=== PATIENT | male | born 2005 | race Caucasian/White ===

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

== ENCOUNTER 2025-01-06 02:21 | Emergency (ER) | payer OTHER ==
[2025-01-06 02:34] VITALS: BP 136/71; PULSE 91; RESP 17; TEMP 98.2
--- NOTE | 2025-01-06 02:48 | ED ---
General Adult HPI - General Chief complaint: Neck Pain/Injury Stated complaint: Neck injury Time Seen by Provider: 01/06/25 02:38 Source: patient, RN notes reviewed, old records reviewed Mode of arrival: ambulatory Limitations: no limitations - History of Present Illness Initial comments: 19-year-old male presenting for evaluation of left-sided neck pain. Patient had injured his neck while swimming [place] an aboveground swimming pool approximately 1 week ago. Patient has not taken any [id number] medication. No numbness or tingling to the upper extremities. No gait abnormalities. - Related Data Home Medications Medication Instructions Recorded Confirmed Pantoprazole Sodium [Protonix] 20 mg PO DAILY 04/05/24 04/05/24 Previous Rx's Medication Instructions Recorded Divalproex [Depakote] 500 mg PO HS 30 Days #30 tab 07/03/23 Melatonin 10 mg PO HS tab 04/11/24 Nicotine 14Mg/24Hr Patch [Habitrol] 1 patch TRANSDERM DAILY 30 Days 04/11/24 #30 patch Pantoprazole [Protonix] 40 mg PO AC-BRKFST 30 Days #30 tab 04/11/24 haloperidoL [Haldol] 15 mg PO HS 30 Days #90 tab 04/11/24 Ketorolac [Toradol] 10 mg PO Q8HR #15 tab 05/02/24 Ofloxacin 0.3% Otic Soln [Floxin 5 drops LEFT EAR BID 7 Days #5 ml 05/10/24 0.3% Otic Soln] Ibuprofen [Motrin] 600 mg PO Q8HR PRN #24 tab 01/06/25 Allergies Allergy/AdvReac Type Severity Reaction Status Date / Time bee venom protein (honey bee) Allergy Swelling Verified 01/06/25 02:32 @sting site risperidone [From Risperdal] Allergy Unknown Verified 01/06/25 02:32 clonidine AdvReac decreased Verified 01/06/25 02:32 BP clozapine [From Clozaril] AdvReac kidney Verified 01/06/25 02:32 issues lisdexamfetamine AdvReac jittery Verified 01/06/25 02:32 [From Vyvanse] Review of Systems ROS Statement: Those systems with pertinent positive or pertinent negative responses have been documented in the HPI. ROS Other: All systems not noted in ROS Statement are negative. Past Medical History Past Medical History: No Reported History Additional Past Medical History / Comment(s): rt index finger and middle finger injury, left ankle. seasonal allergies History of Any Multi-Drug Resistant Organisms: None Reported Past Surgical History: Adenoidectomy, Ear Surgery, Tonsillectomy Additional Past Surgical History / Comment(s): WILLARD. TYMPLANOPLASTY Past Anesthesia/Blood Transfusion Reactions: No Reported Reaction, Previous P roblems w/ Anesthesia Additional Past Anesthesia/Blood Transfusion Reaction / Comment(s): panics and passes out with blood draws and IVs. mom takes long time to wake up after anesthesia Past Psychological History: ADD/ADHD, Anxiety, Bipolar, Depression, Schizoaffective Disorder Smoking Status: Current every day smoker, Vaper Past Alcohol Use History: None Reported Past Drug Use History: None Reported - Past Family History Mother Family Medical History: No Reported History Additional Family Medical History / Comment(s): depression General Exam Limitations: no limitations General appearance: alert, in no apparent distress Head exam: Present: atraumatic, normocephalic Eye exam: Present: normal appearance, PERRL ENT exam: Present: normal exam Neck exam: Present: normal inspection, tenderness, full ROM (Left trapezius mus amy, no midline tenderness) Respiratory exam: Present: normal lung sounds bilaterally. Absent: respiratory distress, wheezes Cardiovascular Exam: Present: regular rate, normal rhythm GI/Abdominal exam: Present: soft. Absent: distended, tenderness Extremities exam: Present: normal inspection, full ROM. Absent: tenderness Neurological exam: Present: alert, oriented X3, CN II-XII intact. Absent: motor sensory deficit Psychiatric exam: Present: normal affect, normal mood Skin exam: Present: warm, dry, intact Course Vital Signs 01/06/25 02:32 Temperature 98.2 F Pulse Rate 91 Respiratory 17 Rate Blood Pressure 136/71 O2 Sat by Pulse 98 Oximetry Medical Decision Making - Medical Decision Making Was pt. sent in by a medical professional or institution (, PA, PROPERTY CUSTODIAN, urgent care, hospital, or long-term...) When possible be specific @ -No Did you speak to anyone other than the patient for history (EMS, parent, family, police, friend...)? What history was obtained from this source @ -No Did you review nursing and triage notes (agree or disagree)? Why? @ -I reviewed and agree with nursing and triage notes Were old charts reviewed (outside hosp., previous admission, EMS record, old EKG, old radiological studies, urgent care reports/EKG's, long-term records)? Report findings @ -No old charts were reviewed Differential Musculoskeletal Muscular strain, contusion, ligament sprain, fracture, arthritis, septic arthritis, bursitis, cellulitis, muscle spasm, nerve compression, DVT, arterial occlusion, herpes zoster, electrolyte abnormality, tumor.... This is not meant to be in all inclusive list EKG interpreted by me (3pts min.). @ -As above X-rays interpreted by me (1pt min.). @ -None done CT interpreted by me (1pt min.). @ -None done U/S interpreted by me (1pt. min.). @ -None done What testing was considered but not performed or refused? (CT, X-rays, U/S, labs)? Why? @ -None What meds were considered but not given or refused? Why? @ -None Did you discuss the management of the patient with other professionals (professionals i.e. , PA, PROPERTY CUSTODIAN, lab, RT, psych nurse, social sciences instructor, legal document assistant, teacher, parking regulation enforcement officer, field nurse case manager)? Give summary @ -No Was smoking cessation discussed for >3mins.? @ -No Was critical care preformed (if so, how long)? @ -No Were there social determinants of health that impacted care today? How? (Homelessness, low income, unemployed, alcoholism, drug addiction, transportation, low edu. Level, literacy, decrease access to med. care, fdc, rehab)? @ -No Was there de-escalation of care discussed even if they declined (Discuss DNR or withdrawal of care, Hospice)? DNR status @ -No What co-morbidities impacted this encounter? (DM, HTN, Smoking, COPD, CAD, Cancer, CVA, ARF, Chemo, Hep., AIDS, mental health diagnosis, sleep apnea, morbid obesity)? @ -None Was patient admitted / discharged? Hospital course, mention meds given and ro binta, prescriptions, significant lab abnormalities, going to OR and other pertinent info. @19-year-old male with an injury to the neck while swimming [place] a pool [place]ground 1 week ago. This was not a diving injury. This was resulting in pain in the left trapezius. There is no midline tenderness. Normal strength in both upper extremities, normal gait, well-appearing. Patient given Toradol in the emergency department and prescribed Motrin. Undiagnosed new problem with uncertain prognosis? @ -No Drug Therapy requiring intensive monitoring for toxicity (Heparin, Nitro, Insulin, Cardizem)? @ -No Were any procedures done? @ -No Diagnosis/symptom? @ -Neck strain Acute, or Chronic, or Acute on Chronic? @ -Acute Uncomplicated (without systemic symptoms) or Complicated (systemic symptoms)? @ -Default Side effects of treatment? @ -No Exacerbation, Progression, or Severe Exacerbation? @ -No Poses a threat to life or bodily function? How? (Chest pain, [place], [place], pneumonia, PE, COPD, DKA, ARF, appy, cholecystitis, CVA, Diverticulitis, Homicidal, Suicidal, threat to staff... and all critical care pts) @ -No Disposition Clinical Impression: Strain of neck muscle Disposition: HOME SELF-CARE Condition: Good Instructions (If sedation given, give patient instructions): Cervical Strain (ED) Prescriptions: Ibuprofen [Motrin] 600 mg PO Q8HR PRN #24 tab PRN Reason: Pain Is patient prescribed a controlled substance at d/c from ED?: No Referrals: Kiara Judd MD [Primary Care Provider] - 1-2 days Time of Disposition: 02:50
[2025-01-06] MEDS: KETOROLAC 15 MG/ML 1 ML VIAL IM STA (02:51)
== END 2025-01-06 02:52 | disposition home or self-care (01) ==
LOC: EC 02:21
DX: S16.1XXA Strain of muscle, fascia and tendon at neck level, initial encounter (principal); F17.290 Nicotine dependence, other tobacco product, uncomplicated; Z91.030 Bee allergy status; Z88.8 Allergy status to other drugs, medicaments and biological substances; X58.XXXA Exposure to other specified factors, initial encounter; Y92.34 Swimming pool (public) as the place of occurrence of the external cause
CPT/HCPCS: 99283; 96372; J1885